=== PATIENT | female | born 1990 | race African-American/Black ===

== ENCOUNTER 2023-09-17 20:46 | Emergency (ER) | payer SELFPAY ==
[2023-09-17] MEDS ORDERED: HYDROcodone/Acetaminophen 5/325 mg Tablet ONE (22:09)
== END 2023-09-17 22:18 | disposition home or self-care (01) ==
LOC: CSHERS 20:46
DX: M25.561 Pain in right knee (principal); F17.210 Nicotine dependence, cigarettes, uncomplicated; Z55.6 Problems related to health literacy